=== PATIENT | female | born 1975 ===

== ENCOUNTER 2021-05-18 09:08 | Emergency (ER) | payer SELFPAY ==
[2021-05-18] MEDS ORDERED: Sodium Chloride 0.9% 1,000 ML IV ONE ×2 (09:48→12:03)
[2021-05-18] MEDS ORDERED: HYDROmorphone 0.5 MG/0.5 ML Syringe IVPUSH ONE ×2 (09:48→15:05)
--- NOTE | 2021-05-18 09:54 | EDM.PDOC ---
ED HPI GENERAL MEDICAL PROBLEM - General Chief Complaint: Abdominal Pain Stated Complaint: ABD PAIN Time Seen by Provider: 05/18/21 09:45 Source of Information: Reports: Patient History Limitations: Reports: No Limitations - History of Present Illness INITIAL COMMENTS - FREE TEXT/NARRATIVE: This 45 yo female patient reports to the ED due to abdominal pain. The patient reports her pain is in the left upper quadrant radiating to her left shoulder and down to the left lower quadrant. The patient reports her pain started earlier this morning (0745) and has been getting worse. The patient reports a history of a stomach ulcer and took her medications this morning for the ulcer. The patient reports she did have a gastric bypass done in 2018 in [place] and has been having ulcer problems since that time. The patient reports she had a normal bowel movement yesterday, but has not had a bowel movement yet today. The patient reports her current pain is a 9/10, but her pain comes in waves. The patient denies any possibilities of . 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 [Unable to Verify Home Med List] 05/18/21 [History] Past Medical History HEENT History: Reports: Impaired Vision Other HEENT History: wears glasses Cardiovascular History: Reports: None Respiratory History: Reports: None Gastrointestinal History: Reports: Other (See Below) Other Gastrointestinal History: ulcer Genitourinary History: Reports: None [employer] History: Reports: None Musculoskeletal History: Reports: None Neurological History: Reports: Concussion, Head Trauma Other Neuro History: 2020 Psychiatric History: Reports: None, ADHD Hematologic History: Reports: None Immunologic History: Reports: None Oncologic (Cancer) History: Reports: None Dermatologic History: Reports: None - Infectious Disease History Infectious Disease History: Reports: Chicken Pox, Measles - Past Surgical History Head Surgeries/Procedures: Reports: None GI Surgical History: Reports: Cholecystectomy Other GI Surgeries/Procedures: gastric bypass 2017 Other Female Surgeries/Procedures: ovarian cyst 1998 Social & Family History - Tobacco Use Tobacco Use Status *Q: Current Every Day Tobacco User Years of Tobacco use: 34 Packs/Tins Daily: 0.5 Second Hand Smoke Exposure: No - Caffeine Use Caffeine Use: Reports: Coffee - Recreational Drug Use Recreational Drug Use: Yes Recreational Drug Type: Reports: Marijuana/Hashish Other Recreational Drug Type: 5 days ago ED ROS GENERAL - Review of Systems Review Of Systems: Comprehensive ROS is negative, except as noted in HPI. ED EXAM, GI/ABD - Physical Exam Exam: See Below Exam Limited By: No Limitations General Appearance: Alert, WD/WN, Moderate Distress Eyes: Bilateral: Normal Appearance, EOMI Ears: Normal External Exam, Normal Canal, Hearing Grossly Normal, Normal TMs Nose: Normal Inspection, Normal Mucosa, No Blood Throat/Mouth: Normal Inspection, Normal Lips, Normal Teeth, Normal Gums, Normal Oropharynx, Normal Voice, No Airway Compromise Head: Atraumatic, Normocephalic Neck: Normal Inspection, Supple, Non-Tender, Full Range of Motion Respiratory/Chest: No Respiratory Distress, Lungs Clear, Normal Breath Sounds, No Accessory Muscle Use, Chest Non-Tender Cardiovascular: Normal Peripheral Pulses, Regular Rate, Rhythm, No Edema, No Gallop, No JVD, No Murmur, No Rub GI/Abdominal Exam: Normal Bowel Sounds, Guarding, Tender (LUQ) (Female) Exam: Deferred Rectal (Female) Exam: Deferred Back Exam: Normal Inspection, Full Range of Motion, NT Extremities: Normal Inspection, Normal Range of Motion, Non-Tender, Normal Capillary Refill, No Pedal Edema Neurological: Alert, Oriented, CN II-XII Intact, Normal Cognition, Normal Gait, Normal Reflexes, No Motor/Sensory Deficits Psychiatric: Normal Affect, Normal Mood Skin Exam: Warm, Dry, Intact, Normal Color, No Rash Lymphatic: No Adenopathy Course - Vital Signs Last Recorded V/S: Last Vital Signs Temp 97.3 F 05/18/21 09:19 Pulse 53 L 05/18/21 09:19 Resp 16 05/18/21 09:19 BP 95/60 05/18/21 09:29 Pulse Ox 100 05/18/21 09:19 - Orders/Labs/Meds Orders: Active Orders 24 hr Category Date Time Status CULTURE BLOOD [BC] Stat Lab 05/18/21 09:32 Ordered CULTURE URINE [RM] Stat Lab 05/18/21 12:32 Received Labs: Laboratory Tests 05/18/21 05/18/21 05/18/21 Range/Units 09:54 09:54 12:32 WBC 9.3 (5.0-10.0) 10^3/uL RBC 4.85 (4.2-5.4) 10^6/uL Hgb 12.6 (12.0-16.0) g/dL Hct 40.7 (37.0-47.0) % MCV 83.9 (80-100) fL MCH 26.0 L (27.0-34.0) pg MCHC 31.0 L (33.0-35.0) g/dL Plt Count 574 H (150-450) 10^3/uL Neut % (Auto) 65.0 (42.2-75.2) % Lymph % (Auto) 30.7 (20.5-50.1) % [place] % (Auto) 3.6 (2-8) % Eos % (Auto) 0.6 L (1.0-3.0) % Baso % (Auto) 0.1 (0.0-1.0) % Sodium 145 (136-145) mmol/L Potassium 3.3 L (3.5-5.1) mmol/L Chloride 106 (98-107) mmol/L Carbon Dioxide 28 (21-32) mmol/L Anion Gap 14.3 H (7-13) mEq/L BUN 13 (7-18) mg/dL Creatinine 0.72 (0.55-1.02) mg/dL Est Cr Clr Drug Dosing 93.34 mL/min Estimated GFR (MDRD) > 60 BUN/Creatinine Ratio 18.1 (No establ ref range) Glucose 135 H (70-99) mg/dL Calcium 8.1 L (8.5-10.1) mg/dL Total Bilirubin 0.6 (0.2-1.0) mg/dL AST 15 (15-37) U/L ALT 26 (14-59) U/L Alkaline Phosphatase 50 (46-116) U/L Total Protein 6.3 L (6.4-8.2) g/dL Albumin 3.1 L (3.4-5.0) g/dL Globulin 3.2 Albumin/Globulin Ratio 0.97 Amylase 44 (25-115) U/L Lipase 224 (73-393) U/L Urine Color Dark yellow (YELLOW) Urine Appearance Clear (CLEAR) Urine pH 5.5 (5.0-9.0) Ur Specific [place]ner >= 1.030 (1.005-1.030) Urine Protein 30 H (NEGATIVE) Urine Glucose (UA) Negative (NEGATIVE) Urine Ketones 15 H (NEGATIVE) Urine Occult Blood Negative (NEGATIVE) Urine Nitrite Positive H (NEGATIVE) Urine Bilirubin Small H (NEGATIVE) Urine Urobilinogen 0.2 (0.2-1.0) mg/dL Ur Leukocyte Esterase Trace H (NEGATIVE) U Hyaline Cast (Auto) Rare Urine RBC 0-5 /HPF Urine WBC 10-20 H (0-5/HPF) /HPF Ur Epithelial Cells Few (NOT SEEN) /HPF Urine Bacteria Moderate H (0-FEW/HPF) /HPF Urine Mucus Many H (NOT SEEN) /LPF Urine HCG, Qual Urine Opiates Screen (NEGATIVE) Ur Oxycodone Screen (NEGATIVE) Urine Methadone Screen (NEGATIVE) Ur Barbiturates Screen (NEGATIVE) U Tricyclic Antidepress (NEGATIVE) Ur Phencyclidine Scrn (NEGATIVE) Ur Amphetamine Screen (NEGATIVE) U Methamphetamines Scrn (NEGATIVE) Urine MDMA Screen (NEGATIVE) U Benzodiazepines Scrn (NEGATIVE) Urine Cocaine Screen (NEGATIVE) U Marijuana (THC) Screen (NEGATIVE) 05/18/21 05/18/21 Range/Units 12:32 12:32 WBC (5.0-10.0) 10^3/uL RBC (4.2-5.4) 10^6/uL Hgb (12.0-16.0) g/dL Hct (37.0-47.0) % MCV (80-100) fL MCH (27.0-34.0) pg MCHC (33.0-35.0) g/dL Plt Count (150-450) 10^3/uL Neut % (Auto) (42.2-75.2) % Lymph % (Auto) (20.5-50.1) % [place] % (Auto) (2-8) % Eos % (Auto) (1.0-3.0) % Baso % (Auto) (0.0-1.0) % Sodium (136-145) mmol/L Potassium (3.5-5.1) mmol/L Chloride (98-107) mmol/L Carbon Dioxide (21-32) mmol/L Anion Gap (7-13) mEq/L BUN (7-18) mg/dL Creatinine (0.55-1.02) mg/dL Est Cr Clr Drug Dosing mL/min Estimated GFR (MDRD) BUN/Creatinine Ratio (No establ ref range) Glucose (70-99) mg/dL Calcium (8.5-10.1) mg/dL Total Bilirubin (0.2-1.0) mg/dL AST (15-37) U/L ALT (14-59) U/L Alkaline Phosphatase (46-116) U/L Total Protein (6.4-8.2) g/dL Albumin (3.4-5.0) g/dL Globulin Albumin/Globulin Ratio Amylase (25-115) U/L Lipase (73-393) U/L Urine Color (YELLOW) Urine Appearance (CLEAR) Urine pH (5.0-9.0) Ur Specific [place] (1.005-1.030) Urine Protein (NEGATIVE) Urine Glucose (UA) (NEGATIVE) Urine Ketones (NEGATIVE) Urine Occult Blood (NEGATIVE) Urine Nitrite (NEGATIVE) Urine Bilirubin (NEGATIVE) Urine Urobilinogen (0.2-1.0) mg/dL Ur Leukocyte Esterase (NEGATIVE) U Hyaline Cast (Auto) Urine RBC /HPF Urine WBC (0-5/HPF) /HPF Ur Epithelial Cells (NOT SEEN) /HPF Urine Bacteria (0-FEW/HPF) /HPF Urine Mucus (NOT SEEN) /LPF Urine HCG, Qual Negative Urine Opiates Screen Positive H (NEGATIVE) Ur Oxycodone Screen Negative (NEGATIVE) Urine Methadone Screen Negative (NEGATIVE) Ur Barbiturates Screen Negative (NEGATIVE) U Tricyclic Antidepress Negative (NEGATIVE) Ur Phencyclidine Scrn Negative (NEGATIVE) Ur Amphetamine Screen Negative (NEGATIVE) U Methamphetamines Scrn Negative (NEGATIVE) Urine MDMA Screen Negative (NEGATIVE) U Benzodiazepines Scrn Negative (NEGATIVE) Urine Cocaine Screen Negative (NEGATIVE) U Marijuana (THC) Screen Positive H (NEGATIVE) Meds: Medications Discontinued Medications Generic Name Dose Route Start Last Admin Trade Name Freq PRN Reason Stop Dose Admin Al Hydroxide/Mg Hydroxide 30 ml 05/18/21 14:12 05/18/21 14:21 Gi Cocktail Oral Solution 30 Ml PO 05/18/21 14:13 30 ml ONETIME ONE Administration Hydromorphone HCl 0.5 mg 05/18/21 09:48 05/18/21 10:01 Hydromorphone 0.5 Mg/0.5 Ml Syringe IVPUSH 05/18/21 09:49 0.5 mg ONETIME ONE Administration Hydromorphone HCl 1 mg 05/18/21 12:30 05/18/21 12:40 Hydromorphone 1 Mg/Ml Syringe IVPUSH 05/18/21 12:31 1 mg ONETIME ONE Administration Hydromorphone HCl 0.5 mg 05/18/21 15:05 Hydromorphone 0.5 Mg/0.5 Ml Syringe IVPUSH 05/18/21 15:06 ONETIME ONE Sodium Chloride 1,000 mls @ 500 mls/hr 05/18/21 09:48 05/18/21 10:01 Normal Saline IV 05/18/21 11:47 500 mls/hr .BOLUS ONE Administration Sodium Chloride 1,000 mls @ 999 mls/hr 05/18/21 12:03 05/18/21 12:10 Normal Saline IV 05/18/21 13:03 999 mls/hr .BOLUS ONE Administration Iopamidol 100 ml 05/18/21 13:07 05/18/21 13:09 Iopamidol 612 Mg/Ml 100 Ml Bottle IVPUSH 05/18/21 13:08 75 ml ONETIME ONE Administration Departure - Departure Time of Disposition: 15:07 Disposition: Home, Self-Care 01 Condition: Fair Clinical Impression: Ovarian cyst Qualifiers: Laterality: left Qualified Code(s): N83.202 - Unspecified ovarian cyst, left side Gastric ulcer Qualifiers: Gastric ulcer chronicity: chronic Gastric ulcer complication status: without hemorrhage or perforation Qualified Code(s): K25.7 - Chronic gastric ulcer without hemorrhage or perforation - Discharge Information *PRESCRIPTION DRUG MONITORING PROGRAM REVIEWED*: Not Applicable *COPY OF PRESCRIPTION DRUG MONITORING REPORT IN PATIENT JASPAL: Not Applicable Instructions: Ovarian Cyst, [id number], Peptic Ulcer, [id number] Forms: ED Department Discharge Care Plan Goals: The patient was advised of the examination, lab and CT results during the visit. The patient was given IV Dilaudid and a GI Cocktail during the visit. The patient was discharged with a script for Noco (10/325) #10 to take 1 by mouth every 6 hours as needed for pain. The patient was encouraged to increase oral fluid intake. If the patient has any additional symptoms or concerns, the patient should either return to the emergency department or visit her primary care facility. Sepsis Event Note (ED) - Evaluation Sepsis Screening Result: No Definite Risk - Focused Exam Vital Signs: Vital Signs Temp Pulse Resp BP Pulse Ox 05/18/21 09:29 95/60 05/18/21 09:19 97.3 F 53 L 16 145/130 H 100 - My Orders Last 24 Hours: My Active Orders 05/18/21 09:32 CULTURE BLOOD [BC] Stat 05/18/21 12:32 CULTURE URINE [RM] Stat - Assessment/Plan Last 24 Hours: My Active Orders 05/18/21 09:32 CULTURE BLOOD [BC] Stat 05/18/21 12:32 CULTURE URINE [RM] Stat
[2021-05-18 10:24] LABS: ANION GAP 14.3 mEq/L (7-13); CHLORIDE,CL 106 mmol/L (98-107); SODIUM,NA 145 mmol/L (136-145)
[2021-05-18] MEDS ORDERED: HYDROmorphone 1 MG/ML Syringe IVPUSH ONE (12:30)
[2021-05-18 12:41] LABS: AMPHETAMINES,URINE NEGATIVE (NEGATIVE); BARBITURATES,URINE NEGATIVE (NEGATIVE); BENZODIAZEPINE,URINE NEGATIVE (NEGATIVE); MDMA (ECSTASY), URINE NEGATIVE (NEGATIVE); METHADONE,URINE NEGATIVE (NEGATIVE); METHAMPHETAMINES,URINE NEGATIVE (NEGATIVE); OPIATES,URINE POSITIVE (NEGATIVE); OXYCODONE,URINE NEGATIVE (NEGATIVE); PHENCYCLIDINE,URINE NEGATIVE (NEGATIVE); TCA,URINE NEGATIVE (NEGATIVE)
[2021-05-18] MEDS ORDERED: Iopamidol 612 MG/ML 100 ML Bottle IVPUSH ONE (13:07)
--- NOTE | 2021-05-18 14:05 | CT ---
EXAMINATION: Abdomen Pelvis w Cont SEX: Female AGE: 45 years CLINICAL HISTORY: 45-year-old 144 pound afebrile female with lower abdominal pain. Past history gastric bypass surgery, cholecystectomy, and kidney stones. Normal WBC. Scan technique: Volume acquisition of data from the abdomen and pelvis obtained without oral contrast but during the intravenous administration 75 cc nonionic Isovue contrast 3 cc/s via injector while patient was lying supine on the Siemens multislice scanner [place], [place]. All data archived in the PACS system for storage, reformatting axial/sagittal/coronal planes and study. Interpretation: Abnormal. 1. Large amount of free fluid in the dependent cul-de-sac (pelvis) and, faintly scattered in the mesentery, left abdomen. 2. No abdominal or pelvic mass lesion and no signs of mesenteric or retroperitoneal lymphadenopathy. No mechanical bowel obstruction, or free intraperitoneal air. 3. Surgical clips epigastrium (gastric bypass surgery); bilateral tube (oviduct) sterilization; cholecystectomy (clips). Isolated surgical clip RLQ (appendectomy?) 4. No sign of nephrolithiasis or obstructive uropathy. Normal kidneys and bladder. Uterus unremarkable. Small ovarian cysts (R>L). Recent cyst rupture? 5. Chronic multilevel lower thoracic and lower lumbar disc disease. Hypertrophic arthritic changes of the spine. 6. Liver, spleen, pancreas and adrenal glands unremarkable. Normal caliber aortoiliac vessels. 7. Lung bases clear. Normal cardiac silhouette. No pericardial or pleural effusion. CONCLUSION: Evidence of several abdominal surgeries. *Free fluid in the pelvis. Small ovarian cysts. No other evidence for primary or metastatic abdominal malignancy. No mechanical bowel obstruction or acute peritonitis.
[2021-05-18] MEDS ORDERED: GI Cocktail Oral Solution 30 ML PO ONE (14:12)
== END 2021-05-18 15:33 | disposition home or self-care (01) ==
LOC: DL.ED 09:08
DX: N83.202 Unspecified ovarian cyst, left side (principal); K25.7 Chronic gastric ulcer without hemorrhage or perforation; Z72.0 Tobacco use
CPT/HCPCS: 36415; 74177; 80053; 80305; 81001; 81025; 82150; 83690; 85025; 87040; 87086; 87088; 87186; 96374; 96376; 99284; A9270; J1170; J7030; Q9967